=== PATIENT | male | born 1975 | race African-American/Black ===

== ENCOUNTER 2022-05-19 08:01 | Observation (INO) | payer MEDICAID ==
[~2022-05-19] VITALS: Ht 190.5 cm; Wt 119.7 kg
[~2022-05-19 08:01] MED LIST: EMPA1TAB32 PO
[2022-05-19] MEDS ORDERED: SODIUM CHLORIDE 0.9% 1,000 ML IV SCH (08:30)
[2022-05-19] MEDS ORDERED: DEXAMETHASONE 4MG/ML 1ML VIAL ONE (10:20)
[2022-05-19] MEDS ORDERED: CEFAZOLIN SODIUM 1000MG/VIAL ONE (10:20)
[2022-05-19] MEDS ORDERED: LIDOCAINE HCL 1% 10 MG/ML 10ML VIAL ONE (10:21)
[2022-05-19] MEDS ORDERED: FENTANYL CITRATE/PF 50MCG/ML 2ML VIAL ONE (10:21)
[2022-05-19] MEDS ORDERED: ROCURONIUM BROMIDE 10MG/ML VIAL 5ML IV ONE (10:21)
[2022-05-19] MEDS ORDERED: MIDAZOLAM HCL 2 MG/2 ML VIAL ONE (10:21)
[2022-05-19] MEDS ORDERED: HYDROMORPHONE HCL/PF 2MG/ML CPJ ONE ×2 (10:45→12:00)
[2022-05-19] MEDS ORDERED: DEXT 5%/0.45% NACL KCL 20MEQ/L 1,000 ML IV SCH (10:45)
[2022-05-19] MEDS ORDERED: MORPHINE SULFATE 4 MG/ML CPJ (NOT FOR IM USE) IV PRN (10:45)
[2022-05-19] MEDS ORDERED: HYDROMORPHONE HCL/PF 2MG/ML CPJ IV PRN (11:00)
[2022-05-19] MEDS ORDERED: LABETALOL 5MG/ML SYR 20 MG/4 ML SYRINGE IV PRN (11:00)
[2022-05-19] MEDS ORDERED: ONDANSETRON HCL 4MG/2ML INJ IV PRN (11:00)
[2022-05-19] MEDS ORDERED: MEPERIDINE HCL/PF 25MG/ML CPJ IV PRN (11:00)
[2022-05-19] MEDS ORDERED: BUPIVACAINE HCL/PF 0.5% (5MG/ML) 30ML ONE (11:14)
[2022-05-19] MEDS ORDERED: NEOSTIGMINE METHYLSULFATE 1MG/ML 10 ML VIAL ONE (11:42)
[2022-05-19] MEDS ORDERED: GLYCOPYRROLATE 0.2 MG/ML 2ML VIAL ONE ×2 (11:42)
[2022-05-19] MEDS ORDERED: BUPIVACAINE HCL 0.5% 125 ML in ON-Q PM012 DRUG DELIV DEVICE 1 EA IR ONE (15:00)
[2022-05-19 17:00] VITALS: BP 136/77
[2022-05-19 18:00] VITALS: BP 136/77
[2022-05-19] MEDS ORDERED: BUPIVACAINE HCL/PF 0.5% (5MG/ML) 10ML ONE (19:54)
[2022-05-19 20:00] VITALS: BP 151/81
[2022-05-19] MEDS ORDERED: NALOXONE HCL 0.4MG/ML VIAL IV PRN (20:00)
[2022-05-19] MEDS: ONDANSETRON HCL 4MG/2ML INJ IV PRN (20:28)
[2022-05-19] MEDS: FAMOTIDINE 20MG/2ML VIAL IV SCH (20:32)
[2022-05-19] MEDS: DEXT 5%/0.45% NACL KCL 20MEQ/L 1,000 ML IV SCH (22:08)
[2022-05-20] VITALS: BP 153/77
[2022-05-20 04:00] VITALS: BP 152/76
[2022-05-20 07:19] LABS: BASOPHILS % 0.2 % (0.0-2.0); EOSINOPHILS % 0.2 % (0.0-5.0); HEMATOCRIT. 28.7 % (42.0-52.0); HEMOGLOBIN. 10.5 g/dL (14.0-18.0); LYMPHOCYTES % 9.2 % (20.0-50.0); MEAN CORPUSCULAR HEMOGLOBIN 30.9 pg (28.0-32.0); MEAN CORPUSCULAR VOLUME 83.9 fL (80.0-94.0); MEAN PLATELET VOLUME 10.3 fl (7.4-10.4); MONOCYTES % 7.3 % (2.0-8.0); NEUTROPHILS % 83.1 % (40.0-76.0); PLATELET 168 x1000/uL (130-400); RED BLOOD CELL COUNT 3.42 mill/uL (4.7-6.1); RED CELL DISTRIBUTION WIDTH 16.6 % (11.6-14.6)
[2022-05-20 08:00] VITALS: BP 137/67
[2022-05-20] MEDS: FAMOTIDINE 20MG/2ML VIAL IV SCH ×2 (08:39→20:49)
[2022-05-20] MEDS: DEXT 5%/0.45% NACL KCL 20MEQ/L 1,000 ML IV SCH (08:40)
[2022-05-20 08:42] LABS: CHLORIDE 105 mEq/L (98-107)
[2022-05-20 12:00] VITALS: BP 140/68
[2022-05-20 16:00] VITALS: BP 125/74
[2022-05-20 20:00] VITALS: BP 123/67
[2022-05-20] MEDS: MORPHINE SULFATE 2 MG/ML CPJ (NOT FOR IM USE) IV PRN (23:59)
[2022-05-21] VITALS: BP 136/76
[2022-05-21] MEDS: DEXT 5%/0.45% NACL KCL 20MEQ/L 1,000 ML IV SCH ×5 (02:34→23:00)
[2022-05-21 04:00] VITALS: BP 149/90
[2022-05-21] MEDS: ONDANSETRON HCL 4MG/2ML INJ IV PRN (04:45)
[2022-05-21 08:00] VITALS: BP 127/80
[2022-05-21] MEDS: FAMOTIDINE 20MG/2ML VIAL IV SCH ×2 (08:40→21:31)
[2022-05-21 16:00] VITALS: BP 139/79
[2022-05-21 20:00] VITALS: BP 126/76
[2022-05-21] MEDS: MORPHINE SULFATE 2 MG/ML CPJ (NOT FOR IM USE) IV PRN (21:30)
[2022-05-22] VITALS: BP 133/80
[2022-05-22] MEDS: MORPHINE SULFATE 2 MG/ML CPJ (NOT FOR IM USE) IV PRN (02:06)
[2022-05-22 04:00] VITALS: BP 140/78
[2022-05-22 08:00] VITALS: BP 126/75
[2022-05-22] MEDS: FAMOTIDINE 20MG/2ML VIAL IV SCH (09:22)
[2022-05-22 12:00] VITALS: BP 111/78
[2022-05-22 16:00] VITALS: BP 119/68
[2022-05-22 18:35] VITALS: BP 119/68
== END 2022-05-22 19:28 | disposition home or self-care (01) ==
LOC: OR 08:01 → 6EST 17:11
PROVIDERS: ADMIT Surgery; ATTEND Surgery
DX: C18.2 Malignant neoplasm of ascending colon (principal); Z20.822 Contact with and (suspected) exposure to COVID-19; E11.9 Type 2 diabetes mellitus without complications; E78.5 Hyperlipidemia, unspecified; D64.9 Anemia, unspecified; Z79.899 Other long term (current) drug therapy; Z98.890 Other specified postprocedural states
CPT/HCPCS: 36415; 44204; 80048; 82962; 85025; 87426; 88307; 96374; 96375; 96376; 97161; C9803; G0378; J0690; J1100; J1170; J2250; J2270; J2405; J2710; J3010; J3490